=== PATIENT | male | born 1955 | race Caucasian/White ===

== ENCOUNTER 2019-08-16 09:39 | Outpatient (REF) | payer MEDICARE, SELFPAY ==
[2019-08-16 19:44] LABS: Calculated LDL 132 mg/dL; Cholesterol 195 mg/dL (50-200); Glucose 95 mg/dL (70-100); HDL Cholesterol 51 mg/dL (40-60); TSH (W/Ref FT4) 2.87 uIU/mL (0.36-3.74); Triglyceride 64 mg/dL (30-150)
== END 2019-08-16 09:59 ==
LOC: NCHCN 09:39
PROVIDERS: PCP Physician Assistant; Visit Provider Nurse Practitioner Family
DX: E78.00 Pure hypercholesterolemia, unspecified (principal); R01.1 Cardiac murmur, unspecified
CPT/HCPCS: 80061; 82947; 84443

== ENCOUNTER 2020-02-26 09:09 | Outpatient (REF) | payer MEDICARE, SELFPAY ==
[2020-02-26 19:34] LABS: ALT 38 U/L (16-63); AST 25 U/L (15-37); Alkaline Phosphatase 82 U/L (46-116); Anion Gap 8.2 mmol/L (3-11); BUN 16 mg/dL (7-18); Bilirubin, Total 0.6 mg/dL (0.2-1.0); CO2 29.8 mmol/L (21.0-32.0); CREATININE 0.98 mg/dL (0.70-1.30); Calcium 9.3 mg/dL (8.5-10.1); Calculated LDL 76 mg/dL (<100); Chloride 103 mmol/L (98-107); Cholesterol 141 mg/dL (<200); Glucose 101 mg/dL (74-106); HDL Cholesterol 42 mg/dL (40-60); Potassium 4.1 mmol/L (3.5-5.1); Sodium 141 mmol/L (136-145); Total Protein 6.9 g/dL (6.4-8.2); Triglyceride 119 mg/dL (<150)
== END 2020-02-26 09:29 ==
LOC: NCHCN 09:09
PROVIDERS: PCP Physician Assistant; Visit Provider Nurse Practitioner Family
DX: I10 Essential (primary) hypertension (principal); E78.5 Hyperlipidemia, unspecified
CPT/HCPCS: 80053; 80061

== ENCOUNTER 2020-03-05 19:50 | Outpatient (REF) | payer MEDICARE, SELFPAY ==
[2020-03-05 20:46] LABS: Calculated LDL 69 mg/dL (<100); Cholesterol 137 mg/dL (<200); HDL Cholesterol 53 mg/dL (40-60); Triglyceride 76 mg/dL (<150)
== END 2020-03-05 20:10 ==
LOC: NCHCN 19:50
PROVIDERS: PCP Physician Assistant; Visit Provider Nurse Practitioner Family
DX: E78.5 Hyperlipidemia, unspecified (principal)
CPT/HCPCS: 80061

== ENCOUNTER 2021-01-27 18:51 | Outpatient (REF) | payer MEDICARE, SELFPAY ==
[2021-01-27 15:38] LABS: Anion Gap 6.9 mmol/L (3-11); BUN 17 mg/dL (7-18); CO2 30.1 mmol/L (21.0-32.0); Calcium 9.4 mg/dL (8.5-10.1); Chloride 103 mmol/L (98-107); Glucose 95 mg/dL (74-106); Potassium 4.5 mmol/L (3.5-5.1); Sodium 140 mmol/L (136-145)
== END 2021-01-27 18:52 | disposition home or self-care (01) ==
LOC: NCHCN 18:51
PROVIDERS: PCP Physician Assistant; Visit Provider Nurse Practitioner Family
DX: I10 Essential (primary) hypertension (principal)
CPT/HCPCS: 80048

== ENCOUNTER 2021-07-30 20:45 | Outpatient (REF) | payer MEDICARE, SELFPAY ==
[2021-07-30 19:49] LABS: ESR 4 mm/hr (0-20)
[2021-07-30 20:07] LABS: ALT 35 U/L (16-63); Anion Gap 6.5 mmol/L (3-11); BUN 16 mg/dL (7-18); CO2 30.5 mmol/L (21.0-32.0); CREATININE 1.1 mg/dL (0.70-1.30); Calcium 9.1 mg/dL (8.5-10.1); Chloride 104 mmol/L (98-107); Glucose 90 mg/dL (74-106); LDL CHOLESTEROL 75 mg/dL (<100); Potassium 4.4 mmol/L (3.5-5.1); Sodium 141 mmol/L (136-145)
[2021-07-30 20:18] LABS: C-Reactive Protein < 0.05 mg/dL (0.0-0.3)
[2021-08-03 12:27] LABS: ANA Interpretation Negative (Negative)
== END 2021-07-30 20:46 | disposition home or self-care (01) ==
LOC: NCHCN 20:45
PROVIDERS: PCP Physician Assistant; Visit Provider Internal Medicine
DX: I10 Essential (primary) hypertension (principal); E78.5 Hyperlipidemia, unspecified; R09.1 Pleurisy; I31.9 Disease of pericardium, unspecified
CPT/HCPCS: 80048; 83721; 85652; 84460; 86038; 86140

== ENCOUNTER 2022-02-11 21:27 | Outpatient (REF) | payer MEDICARE, SELFPAY ==
--- OUTSIDE RECORDS SUMMARY | 2022-02-11 21:30 | XMS_ITS ---
:1955 Author Care Team Providers Name Role Phone JAGDISH GARCIA MD Filler Blender [phone] ERIKA RESTREPO MD General Surgeon [phone] JALEN FUNK MD Primary Care Provider [phone] Allergies Code Code System Name Reaction Severity Status Onset 2670 RxNorm Codeine Itching Mild Active ? 264006 RxNorm Peanut ? ? Active ? Notes: No seafood allergy. No co ntrast allergy. seasonal allergies Medications Name Status Start Date Stop Date ? ? Aleve 220 mg capsule Active 07/07/2020 Not availab le Take 1 capsule as needed by oral route. aspirin 81 mg tablet,delayed release Active 07/07/2020 Not available Take 1 tablet every day by oral route in the evening. atorvastatin 40 mg tablet Active 07/07/2020 Not av ailable colchicine 0.6 mg tablet Active ? Not parisa ilable Take 1 tablet twice a day by oral route. hydromorphone 2 mg tablet Completed ? 2019 lisinopril 20 mg tablet Completed ? 01/30/20 20 loratadine 10 mg capsule Completed ? 020 Take 1 capsule every day by oral route. loratadine 10 mg tablet Active 07/07/2020 Not avai lable Take 1 tablet as needed by oral route. losartan 25 mg tablet Active ? Not availa ble Take 1 tablet every day by oral route. metoprolol succinate ER 25 mg Active ? No t available tablet,extended release 24 hr metoprolol tartrate 50 mg Completed ? 2019 tablet oxycodone 5 mg tablet Completed ? 12/05/2019 valacyclovir 1 gram tablet Active 07/07/2020 Not a vailable prn Problems Name Status Onset Date Source ? Aortic Valve Stenosis Active 11/27/2019 ? Heart Murmur Active 12/05/2019 ? Hyperlipidemia Active 06/30/2020 ? Hypertensive Disorder Active 06/30/2020 ? 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 Chest Pain Due to Pericarditis Active 06/30/2020 ? History of Adenomatous Polyp of Colon Active 06/30/2020 ? History of Fracture Active 06/30/2020 ? Replacement of Aortic Valve Active 06/30/2020 ? Diverticula of Intestine Active ? History Tear of Medial Meniscus of Knee Active ? History Injury of Left Lower Leg Active ? History Knee Pain Active ? History Procedures Date Name Performed by ? 07/07/2020 Colonoscopy Information not avai lable Notes: diverticulosis, no polyps. 10/31/2019 Aortic Valve Surgery Information not parisa ilable Notes: 09/14/2019 Cardiac Catheterization Information not available 10/10/2004 Colonoscopy Information not avai lable ? Appendectomy Information not avai lable ? Knee Surgery Information not avai lable Notes: Right ACL repair ? Tonsillectomy Information not avai lable 01/22/2020 US, [facility]chocardiogram [facility] [address] [place] [id number] (Work Place) 10/14/2020 US, Echocardiogram, Transthoracic, [facility] (Internal) Complete [address], [place] [id number] (Work Place) 11/11/2020 US, Echocardiogram, Transthoracic, [facility] (Internal) Complete [address] [place] [id number] (Work Place) 11/11/2020 CT, Angiogram, Chest, W/wo Contrast [facility] (Mri And Ct Scheduling) [address] [place] [address] (Work Place) 08/19/2021 XR, Knee, 4 or More View [facility] (Internal) [address], [place] [id number] (Work Place) Results Lab Results Date Name Specimen Result Interpretation Description Value Range Status Address ? 12/29/2021 CBC W/ Auto Diff BLD ? Wbc 6.1 5.0-10.0 F inal [place] 10*3/uL 10*3/uL [facility] L ab (Internal) : [address] t ? ? BLD Low Rbc 4.40 4.60-6.00 Final [place] 10*6/uL 10*6/uL [facility] L ab (Internal) : [address] , [place] ? ? BLD Low Hgb 13.9 14.0-18.0 Final [place] g/dL g/dL [facility] L ab (Internal) : [address] [place] ? ? BLD Low Hct 40.4 % 41.0-51.0 Final [facility] L ab (Internal) : [address] [place] ? ? BLD ? Mcv 91.8 fL 80.0-96.[address] [facility] L ab (Internal) : [address] [place] ? ? BLD ? Mch 31.6 pg 26.0-32.0 Final [place] pg [facility] L [facility] (Internal) : [address] [place] ? ? BLD ? Mchc 34.4 31.0-35.0 Final [place] g/dL g/dL [facility] (Internal) : [address] [place] ? ? BLD ? Rdw 12.6 % 11.5-14.5 Final [facility] L [facility] (Internal) : [address] [place] ? ? BLD ? Plt 250 130-450 Final [place] 10*3/uL 10*3/uL [facility] L [facility] (Internal) : [address] [place] ? ? BLD ? Anc 3.35 ? Final [place] 10*3/uL [facility] (Internal) : [address] [place] ? ? BLD ? Nlr 1.66 0.00-3.20 Final [facility] (Internal) : [address] [place] ? ? BLD ? Neutro 54.5 % 40.0-75.0 Final [facility] (Internal) : [address] [place] ? ? BLD ? Lymph 32.9 % 20.0-50.0 Final [facility] (Internal) : [address] [place] ? ? BLD ? Hamlin 7.7 % 2.0-10.0 Final [facility] L [facility] (Internal) : [address] [place] ? ? BLD ? Eos 3.9 % 1.0-6.0 % Final [facility] L ab (Internal) : [address] [place] ? ? BLD ? Baso 0.7 % 0.0-1.0 % Final [facility] L ab (Internal) : [address] t ? ? BLD ? Ig 0.3 % 0.0-0.9 % Final [facility] (Internal) : [address] 12/29/2021 Hepatic Function S ? Tbil 0.50 0.20-1.00 Final [place] Panel, Serum mg/dL mg/dL [facility] L ab (Internal) : [address] t ? ? S ? Dbil 0.15 0.00-0.20 Final [place] mg/dL mg/dL [facility] L ab (Internal) : [address] t ? ? S ? Alp 80 U/L 46-116 Final [place] U/L [facility] ab (Internal) : [address] t ? ? S ? Alt (Sgpt) 29 U/L 16-63 U/L Final No rth [facility] L ab (Internal) : [address] t ? ? S ? Ast (Sgot) 20 U/L 15-37 [facility] [address] t ? ? S ? Ggt 20 U/L 15-85 U/L Final [facility] ab (Internal) : [address] t ? ? S ? Tp 7.4 g/dL 6.4-8.2 Final [place] g/dL [facility] L ab (Internal) : [address] t ? ? S ? Alb 4.1 g/dL 3.4-5.0 Final [place] g/dL [facility] L [facility] (Internal) : [address] 12/29/2021 Renal Function S ? g/r 100 74-106 Final [place] Panel, Serum mg/dL mg/dL [facility] L ab (Internal) : [address] t ? ? S ? Bun 14 mg/dL 7-18 Final [place] mg/dL [facility] L ab (Internal) : [address] t ? ? S ? Crea 0.9 0.7-1.3 Final [place] mg/dL mg/dL [facility] (Internal) : [address] t ? ? S ? Ca 8.8 8.5-10.1 Final [place] mg/dL mg/dL [facility] (Internal) : [address] t ? ? S ? Phos 3.4 2.6-4.7 Final [place] mg/dL mg/dL [facility] (Internal) : [address] t ? ? S ? Na 137 136-145 Final [place] mmol/L mmol/L [facility] (Internal) : [address] t ? ? S ? K 4.0 3.5-5.1 Final [place] mmol/L mmol/L [facility] (Internal) : [address] t ? ? S ? Cl 102 98-107 Final [place] mmol/l mmol/l [facility] (Internal) : [address] t ? ? S ? Tco2 28.2 21.0-32.0 Final [place] mmol/L mmol/L [facility] (Internal) : [address] t ? ? S ? Alb 4.1 g/dL 3.4-5.0 Final [place] g/dL [facility] (Internal) : [address] t ? ? S Low GFR (Calc) 87 >89 Final [facility] L ab (Internal) : [address] 12/29/2021 Lipid Panel, S ? Chol 146 0-200 Final [place] Serum mg/dL mg/dL [facility] (Internal) : [address] t ? ? S ? Trig 55 mg/dL 0-150 Final [place] mg/dL [facility] (Internal) : [address] t ? ? S High Hdl 63 mg/dL 40-60 Final [place] mg/dL [facility] (Internal) : [address] t ? ? S ? Ldl 72 mg/dL 0-130 Final [place] mg/dL [facility] (Internal) : [address] 11/16/2021 CBC W/ Auto Diff BLD ? Wbc 6.9 5.0-10.0 F inal [place] 10*3/uL 10*3/uL [facility] (Internal) : [address] [place] ? ? BLD Low Rbc 4.43 4.60-6.00 Final [place] 10*6/uL 10*6/uL [facility] L ab (Internal) : [address] [place] ? ? BLD Low Hgb 13.8 14.0-18.0 Final [place] g/dL g/dL [facility] L [facility] (Internal) : [address] [place] ? ? BLD Low Hct 40.7 % 41.0-51.0 Final [facility] L ab (Internal) : [address] [place] ? ? BLD ? Mcv 91.9 fL 80.0-96.[address] [facility] L ab (Internal) : [address] [place] ? ? BLD ? Mch 31.2 pg 26.0-32.0 Final [facility] L ab (Internal) : [address] [place] ? ? BLD ? Mchc 33.9 31.0-35.0 Final [place] g/dL g/dL [facility] L [facility] (Internal) : [address] [place] ? ? BLD ? Rdw 11.9 % 11.5-14.5 Final [facility] L ab (Internal) : [address] [place] ? ? BLD ? Plt 249 130-450 Final [place] 10*3/uL 10*3/uL [facility] L ab (Internal) : [address] ? ? BLD ? Anc 4.05 ? Final [place] 10*3/uL [facility] L ab (Internal) : [address] ? ? BLD ? Nlr 2.15 0.00-3.20 Final [facility] L ab (Internal) : [address] [place] ? ? BLD ? Neutro 59.1 % 40.0-75.0 Final [facility] L ab (Internal) : [address] [place] ? ? BLD ? Lymph 27.4 % 20.0-50.0 Final [facility] L ab (Internal) : [address] [place] ? ? BLD ? Hamlin 8.7 % 2.0-10.0 Final [place] [facility] (Internal) : [address] t ? ? BLD ? Eos 3.8 % 1.0-6.0 % Final [facility] L ab (Internal) : [address] t ? ? BLD ? Baso 0.6 % 0.0-1.0 % Final [facility] L ab (Internal) : [address] t ? ? BLD ? Ig 0.4 % 0.0-0.9 % Final [facility] L ab (Internal) : [address] t 11/16/2021 CMP, Serum or S High g/r 107 74-106 Final [place] Plasma mg/dL mg/dL [facility] (Internal) : [address] t ? ? S ? Bun 16 mg/dL 7-18 Final [place] mg/dL [facility] (Internal) : [address] t ? ? S ? Crea 0.9 0.7-1.3 Final [place] mg/dL mg/dL [facility] (Internal) : [address] t ? ? S ? Ca 9.7 8.5-10.1 Final [place] mg/dL mg/dL [facility] (Internal) : [address] t ? ? S ? Na 136 136-145 Final [place] mmol/L mmol/L [facility] (Internal) : [address] t ? ? S ? K 4.5 3.5-5.1 Final [place] mmol/L mmol/L [facility] (Internal) : [address] t ? ? S ? Cl 101 98-107 Final [place] mmol/l mmol/l [facility] (Internal) : [address] t ? ? S ? Tco2 27.5 21.0-32.0 Final [place] mmol/L mmol/L [facility] (Internal) : [address] t ? ? S ? Tp 7.4 g/dL 6.4-8.2 Final [place] g/dL [facility] (Internal) : [address] t ? ? S ? Alb 4.0 g/dL 3.4-5.0 Final [place] g/dL [facility] (Internal) : [address] t ? ? S ? Tbil 0.60 0.20-1.00 Final [place] mg/dL mg/dL [facility] L ab (Internal) : [address] t ? ? S ? Alp 80 U/L 46-116 Final [place] U/L [facility] L [facility] (Internal) : [address] t ? ? S ? Alt (Sgpt) 25 U/L 16-63 U/L Final No rth [facility] L ab (Internal) : [address] t ? ? S ? Ast (Sgot) 23 U/L 15-37 U/L Final No rth [facility] L ab (Internal) : [address] 11/16/2021 CRP, High S ? Rcrp 0.40 0.00-3.00 Final [place] Sensitivity, mg/L mg/L Coun try Serum or Plasma H ospital Lab (Internal) : [address] 11/16/2021 ESR (Erythrocyte BLD ? Esr 13 mm/h 0-20 mm/h Final [place] Sedimentation Cou ntry Rate), Blood Hosp ital Lab (Internal) : [address] 01/09/2021 EKG Done by Lab ? No ? ? ? [place] observation Count ry recorded. Hospita l Lab (Internal) : [address] 12/11/2020 Lipid Panel, S ? Chol 155 50-200 Final [place] Serum mg/dL mg/dL [facility] L ab (Internal) : [address] t ? ? S ? Trig 72 mg/dL 10-150 Final [place] mg/dL [facility] L ab (Internal) : [address] t ? ? S High Hdl 69 mg/dL 40-60 Final [place] mg/dL [facility] (Internal) : [address] t ? ? S ? Ldl 72 mg/dL 0-130 Final [place] mg/dL [facility] L [facility] (Internal) : [address] 12/11/2020 Hepatic Function S ? Tbil 0.7 0.2-1.3 Fi nal [place] Panel, Serum mg/dL mg/dL [facility] L ab (Internal) : [address] t ? ? S ? Dbil 0.2 0.0-0.3 Final [place] mg/dL mg/dL [facility] (Internal) : [address] t ? ? S ? Alp 77 U/L 38-126 Final [place] U/L [facility] L [facility] (Internal) : [address] t ? ? S ? Alt (Sgpt) 24 U/L 21-72 U/L Final No rth [facility] L ab (Internal) : [address] t ? ? S ? Ast (Sgot) 35 U/L 17-59 U/L Final No rth [facility] L ab (Internal) : [address] t ? ? S ? Ggt 21 U/L 15-73 U/L Final [facility] L ab (Internal) : [address] t ? ? S ? Tp 7.5 g/dL 6.3-8.2 Final [place] g/dL [facility] L [facility] (Internal) : [address] t ? ? S ? Alb 4.5 g/dL 3.5-5.0 Final [place] g/dL [facility] L ab (Internal) : [address] t 09/01/2019 CBC W/ Auto Diff BLD - Wbc 6.7 5.0-10.0 F inal [place] 10*3/uL 10*3/uL [facility] L ab (Internal) : [address] t ? ? BLD Low Rbc 4.48 4.60-6.00 Final [place] 10*6/uL 10*6/uL [facility] (Internal) : [address] t ? ? BLD - Hgb 14.4 14.0-18.0 Final [place] g/dL g/dL [facility] (Internal) : [address] t ? ? BLD - Hct 41.4 % 41.0-51.0 Final [place] % [facility] (Internal) : [address] t ? ? BLD - Mcv 92.4 fL 80.0-96.[address] [facility] L ab (Internal) : [address] t ? ? BLD High Mch 32.1 pg 26.0-32.0 Final [place] pg [facility] (Internal) : [address] ? ? BLD - Mchc 34.8 31.0-35.0 Final [place] g/dL g/dL [facility] (Internal) : [address] t ? ? BLD - Rdw 12.0 % 11.5-14.5 Final [place] % [facility] ab (Internal) : [address] ? ? BLD - Plt 273 130-450 Final [place] 10*3/uL 10*3/uL [facility] L ab (Internal) : [address] ? ? BLD - Anc 2.90 ? Final [place] 10*3/uL [facility] (Internal) : [address] t ? ? BLD - Neutro 43.4 % 40.0-75.0 Final [facility] L ab (Internal) : [address] t ? ? BLD - Lymph 42.0 % 20.0-50.0 Final [facility] L ab (Internal) : [address] t ? ? BLD - Hamlin 9.6 % 2.0-10.0 Final [facility] L ab (Internal) : [address] t ? ? BLD - Eos 4.3 % 1.0-6.0 % Final [facility] L ab (Internal) : [address] t ? ? BLD - Baso 0.6 % 0.0-1.0 % Final [facility] L ab (Internal) : [address] t ? ? BLD - Ig 0.1 % 0.0-0.9 % Final [facility] L ab (Internal) : [address] 09/01/2019 BMP, Serum or S - g/r 103 74-106 Final [place] Plasma mg/dL mg/dL [facility] (Internal) : [address] t ? ? S - Bun 15 mg/dL 9-20 Final [place] mg/dL [facility] (Internal) : [address] t ? ? S - Crea 0.90 0.66-1.25 Final [place] mg/dL mg/dL [facility] (Internal) : [address] [facility] ? ? S - Ca 9.6 8.4-10.2 Final [place] mg/dL mg/dL [facility] (Internal) : [address] [facility] ? ? S - Na 137 137-145 Final [place] mmol/L mmol/L [facility] (Internal) : [address] [facility] t ? ? S - K 4.1 3.5-5.1 Final [place] mmol/L mmol/L [facility] (Internal) : [address] [facility] ? ? S - Cl 101 98-107 Final [place] mmol/L mmol/L [facility] (Internal) : [address] [facility] ? ? S - Tco2 26.0 22.0-30.0 Final [place] mmol/L mmol/L [facility] (Internal) : [address] [facility] t 09/01/2019 Magnesium, QN, S - mg 1.9 1.6-2.3 Melania l [place] Serum or Plasma mg/dL mg/dL [facility] L ab (Internal) : [address] [facility] 09/01/2019 Partial BLD - PTT (Ip) 26 s 22-35 s Final N orth Thromboplastin Co [facility] L ab (Internal) : [address] [facility] t 09/01/2019 Prothrombin Time BLD - Pt 10.2 S 9.1-11.7 F inal [facility] L ab (Internal) : [address] [facility] ? ? BLD - Inr 1.0 ? Final [facility] L ab (Internal) : [address] [facility] t 09/01/2019 Troponin I, S - Trop <0.06 0.00-0.06 Final [place] Serum or Plasma NG/mL NG/mL [facility] L ab (Internal) : [address] [facility] 09/01/2019 Troponin I, S - Trop <0.06 0.00-0.06 Final [place] Serum or Plasma NG/mL NG/mL [facility] ab (Internal) : [address] [facility] Past Encounters 12/29/2021 Arteriosclerotic Vascular Disease Jagdish Garcia MD: [address], [place] [address], Ph. 08/19/2021 Pain of Right Knee Region Tashi Godoy MD: [address] [facility], [address], [place] [address], Ph. 05/01/2021 Jagdish Garcia MD: [address], [place] [address], Ph. 11/11/2020 Jagdish Garcia MD: [address], [place] [address], Ph. Social History Tobacco Smoking Status Never Smoker Vaccine List None recorded. Plan of Care Reminders Provider Appointments None ? ? recorded. Lab None ? ? recorded. Referral None ? ? recorded. Procedures None ? ? recorded. Surgeries None ? ? recorded. Imaging None ? ? recorded. Vitals 12/29/2021 01:00PM Follow Up 30 Height Weight BMI Blood Pressure 167.64 cm 74 kg 26.3 kg/m2 129/81 mm[Hg] 08/19/2021 11:30AM Office 30 Height Weight BMI 167.64 cm 75.43 kg 26.8 kg/m2 05/01/2021 10:30AM Follow Up 30 Height Weight BMI Blood Pressure 167.64 cm 74 kg 26.3 kg/m2 124/70 mm[Hg] 11/11/2020 09:45AM NuclearMedFollow-up Height Weight BMI Blood Pressure 167.64 cm 74.7 kg 26.6 kg/m2 133/81 mm[Hg] 04/22/2020 01:45PM Follow Up 15 Height Weight BMI Blood Pressure 167.64 cm 74.3 kg 26.4 kg/m2 131/73 mm[Hg] 12/05/2019 01:00PM Consult 60 Height Weight BMI Blood Pressure 167.64 cm 73.9 kg 26.3 kg/m2 106/66 mm[Hg] 08/29/2019 11:30AM Follow Up 30 Height Weight BMI Blood Pressure 167.64 cm 76.4 kg 27.2 kg/m2 120/80 mm[Hg] 04/05/2016 Height Weight 167.64 cm 72.57 kg 05/08/2014 Height Weight Blood Pressure 167.64 cm 72.57 kg 122/82 mm[Hg] 11/27/2013 Height Weight Blood Pressure 167.64 cm 72.57 kg 134/76 mm[Hg]
--- OUTSIDE RECORDS SUMMARY | 2022-02-11 21:30 | XMS_ITS | Encounter Summary ---
:1955 Author Care Team Providers Name Role Phone Momo Falcon MD Primary Care Provider [phone] Jagdish Gonzalez MD Electrical Apprentice [phone] Krunal Hidalgo MD General Surgeon [phone] Reason for Visit - Aortic Stenosis; hyperlipidemia; CA D - Coronary Artery Disease; HTN-Hypertension Assessment and Plan Assessment Note Date: December 29, 2021 Referring: Momo Falcon Re: Perez Yap 66-year-old man. Problems: 1. Aortic stenosis. Bicuspid valve. October 31, 2019. 23 mm Inspiris biopros thetic valve. Symptoms prior to valve replacement incl uded progressive shortness of breath and fatigue that has been noted in a crescendo fashion for about 2 years. 2019 echo: Aortic stenosis: mean gradien t 43 mmHg. 2. Question pericarditis. In the first week of January 2020 patient began to note chest discomfort that appeared to be positionally mediated. It was worse when he was sitting in a chair or laying down in certain positions, relieved when he would get up or sit forward. Was doing well otherwise. Was pursuing a ll his usual activities, busy sugaring. Doing some physical work. Walking. Progressing well from surgery. No fever or chills, no URI symptoms. We spoke on the phone January 21, 2020 in regard to this discomfort. We agreed to begin high-dose aspirin: 800 mg 3 times daily x1 week, 800 mg twice daily x1 week, 800 mg daily x1 week, and start colchicine 0.6 mg twice daily. Today, January 30, 2020, he feels that his discomfort has improved somewhat. He has gone 1 week on high-dose aspirin. Is beginning 800 mg twice daily this week. He has not yet started colchicine. HPI: December 29, 2021. ER evaluation u 2021. Left arm tingling. He had an episode of vertigo (not uncommon). Following episode on morning of evaluation developed a metallic taste in his mouth, n umbness and tingling around his lips and left hand. Lightheaded. [address] scan demonstrating Indeterminate well-circumscribed CSF attenuating focus posterior fossa right of midlin e. May represent chronic infarct versus arachnoid cyst. Patient is active in his usual capacity at this time of year. He is actively sugaring. He is climbing up and down the hills around his house securing his lines looking after his taps etc. He is very physically active. He was busy during the winter with skiin g and snowboarding. Busy around the house. Is starting to get back into cross-country skiing. He is doing some yoga. Walking half mile twice daily. Activities are well-tolerated. He is describing a bit more fatigue than usual. He is pretty tired after a long day of skiing. Denies chest discomfort. Denies shortnes s of breath. Denies PND orthopnea edema. Weight is stable. No palpitations presyncope or syncope. No bleeding problems. Data: Cardiac risk factors: Negative tobacco. Negative diabetes. Negative cholesterol. Positive hypertension. Negative family history Social history: Activity profile as abov e. No tobacco. No alcohol. Past medical history: Pelvic fracture. B ack pain. Review of systems: A 10-point review of systems was obtained. Pertinent positives as described in HPI, all others negative. Allergies: Peanuts. Codeine. Contrast allergies: Echo: November 02, 2021. LVEF 65-70%. No segmental wall motion abnormalities. Normal size. Mild concentric LVH. Diastolic indices indeterminate. Sinus rhythm. Left atrium mildly dilated, 40.7 (34). Right ventricle normal size and function. Rig ht atrium mildly dilated. Bioprosthetic aortic valve. Peak velocity 2.6 m/s. Mean gradient 12 mmHg. DOI 0.53. Acceleration time 86 ms. No AI. Normal function. Tri vial?mild MR. Trivial TR. Pulmonary pres sure 40-50 mmHg. Pericardium normal. Aortic root normal 3.3. Ascending moderately dilated 4.3. Arch mildly dilated 3.5. No PDA. IVC normal. No ASD VSD PFO. E prime 8, 10 (7, 10). E/E prime averag e 9 (14). TR max 3.2 (2.8). January 25, 2020. LVEF 65%. Normal size. M ild LVH. Right ventricle normal. Left atrium mildly dilated. Right atrium mildly dilated. Bioprosthetic aortic valve: Normal function. Peak velocity 2.4 m/s. Mean gradient 11 mmHg. DOI 0.53, acceleratio n time less than 100 ms. Small anterior paravalvular leak. No AI. 1?2+ MR. Trivial TR. Pulmonary pressure 30-40 mmHg total. Aortic root mildly dilated 3.7. Ascending moderately dilated 4.3. Arch normal 3.2. No coarctation. No PDA. IVC mildly dilated common respirophasic change right atrial pressure estimated 5-10 mmHg. Interatrial septum is lipomatous. Si nus rhythm. E prime 7, 11 (7, 10). E/E p rimed 12.3, 8.4 (15, 12). December 03, 2019. [facility]. LVEF 63%. Normal size. Borderline LVH. Normal Doppler evaluation. Right ventricle not described. Pulmonary pressure not assessable. Left atrium mildly dilated, right atrium mildly dilated. Aortic valve: Bioprosth etic aortic valve. 23 mm valve. Peak velocity 3.09 m/s. Mean gradient 18 mmHg. DOI 0.4. Normal function. Trace MR. Trace TR. Trace PI. Aortic root mildly dilated 3.8. Ascending aorta moderately dilated 4.5 cm. Pulmonary artery normal. October 31, 2019. Operative FANTA. LVEF 70 %. Right ventricle probably normal. Left atrium no spontaneous contrast, no thrombus. Right atrium: Prominent eustachian valve. Prominent Chiari network. Aortic v alve: Mean gradient 7.2 mmHg. Well-seate d. No prosthetic valve regurgitation. 1+ MR. 1+ TR. Mild dilatation aortic root, moderate dilatation ascending aorta. Grade 3 atheroma a sending aorta, arch, descending aorta. Cardiac MRI: Stress: LHC: September 17, 2019. [facility]. Left m ain: Mild disease. LAD: 60% ostial. LCx: 45% mid. OM1: 55% ostial. RCA: 50% proximal. Mean right atrial pressure 5 mmHg. RV pr essure 35/7 mmHg PA pressure 30/12 mmHg. Mean wedge pressure 11 mmHg. Cardiac output Sussy 4.85, cardiac index Sussy 2.7. Holter: Event monitor: EKG: December 29, 2021. Sinus rhythm 60 bpm . Normal axis. No acute change. QT/QTc 420 ms November 16, 2021. Sinus rhythm 66 bpm. N ormal axis. Q wave lead III. No acute change. QT/QTc 431/452 ms. December 03, 2019. Sinus rhythm 65 bpm. T wave inversions leads III, F, V4?V6. QT/QTc 410/426 ms. August 14, 2019. Sinus rhythm 88 bpm. N ormal axis. No acute change. QT/QTc 376/425 ms. Radiology: September 01, 2019. Chest x-ra y. No acute process. Pulmonary function test: December 14, 2021. FVC 112% predicted. FEV1 110% predicted. FEV1/FVC 97% predicted. DLCO not calculated. Radiology: December 02, 2020. CT angiogr am chest. [facility]. Helical CT angiogram. Mild four-chamber cardiac enlargement. Somewhat asymmetrically affecting the right atrium. Moderate multifocal atherosc lerotic calcification of the coronary ar teries. Aorta: Fusiform enlargement of the ascending aorta. No sinotubular junction effacement. Postsurgical changes along the ventral aspect of the aorta consist ent with prior cardiopulmonary bypass. S inuses: 2.9 x 3.6 cm. Sinotubular junction: 3.2 x 3.3 cm. Mid ascending aorta: 4.2 x 4.3 cm. Proximal aortic arch 3.8 x 2.9 cm. Mid aortic arch 2.8 x 3.0 cm. Prox imal descending thoracic: 2.3 x 2.5 cm. Mid descendin.3 x 2.4 cm. A diaphragm: 2.2 x 2.3 cm. Abdominal aorta at celiac axis origin: 2.1 x 2.4 cm. Normal three-vessel arch. Calcified atherosclerotic plaque at the origin of the left common carotid artery without significant stenosis. Celiac/SMA: Widely patent. Pulmonary arteries: Normal in course and caliber. Dependent atelectasis bilaterally. No pl eural effusion. Thyroid gland lobulated, most likely multinodular goiter. November 26, 2021. Carotid ultrasound. B ilateral plaque, mild to moderate. No significant stenosis. November 18, 2021. MR brain with without contrast. No acute intracerebral abnormality. No infarct or intracerebral bleed. Triangular-shaped area located inferior right cerebellar hemisphere. Encephalomal acia typical for chronic infarct. Differ ential: Arachnoid cyst, epidermoid cyst or cystic neoplasm unlikely. Minimal tiny patchy foci of leukomalacia seen in both cerebral hemispheres consistent with ch ronic underlying small vessel ischemic d isease most likely. November 16, 2021. CT head brain with con trast. Indeterminate well-circumscribed CSF attenuating focus posterior fossa right of midline. May represent chronic infarct versus arachnoid cyst. Epidermoid cyst and cystic neoplasm are less likely. Labs: November 16, 2021. ESR normal 13. C RP normal 0.4. BUN/creatinine 16/0.9. Lites normal. AST/ALT normal. H/H 13.8/40.7. WBC, platelet normal. September 01, 2019. Troponin less than 0. 06. Magnesium normal 1.9. BUN/creatinine 15/0.9. Lites normal. CBC normal. Medications: Aspirin 81 mg daily, atorva statin 40 mg daily, losartan 25 mg daily, metoprolol succinate 12.5 mg daily Loratadine, Aleve Exam: Blood pressure 129/81 Heart rate: 66 Oxygen saturation: 98% Weight: 163 pounds, 162.9 pounds General: Patient alert oriented appropri ate conversant. HEENT: JVP 7 cm sitting. Heart: Regular rate and rhythm, S1-S2, n o murmur gallop or rub. Lungs: Clear to auscultation bilaterally . Abdomen: Soft. Nontender. Nondistended. Extremities: No lower extremity edema bi laterally. Assessment: 1. Aortic stenosis. Bicuspid aortic valve. Bioprosthetic aortic valve replacement J anuary 2019. Discrepancy between postoperative FANTA an d TTE with mean gradient: 7 mmHg versus 18 mmHg. TTE: Peak velocity 3.1 m/s. Mean gradien t 18 mmHg. DOI 0.4. Normal function. TTE January 2020 (done to evaluate presump tive pericarditis): Normal bioprosthetic valve function: Peak velocity 2.4 m/s. Mean gradient 11 mmHg. DOI 0.53, acceleration time less than 100 ms. Small anterior paravalvular leak. No AI. TTE November 02, 2021. Bioprosthetic aort ic valve. Peak velocity 2.6 m/s. Mean gradient 12 mmHg. DOI 0.53. Acceleration time 86 ms. No AI. No paravalvular leak. Maintained on aspirin. Because of bicuspid valve related aortop athy we will repeat echo in 1 year. Today, December 29, 2021: Doing very well c linically from this perspective. 2. Coronary disease. Moderate multivessel disease on pre-AVR LHC. 60% proximal LAD. He also has fairly significant aortic at heroma noted on FANTA. He is typically a very aerobic individua l. I think we will be able to follow him well from this perspective as his functionality increases again following surgery. Maintained on aspirin, beta-james. Farheen ntained on statin. Concerning regarding possible TIA sympto ms November 2021, this on a background of potential old CVA. Think we should be aggressive with ather osclerosis risk modification. We will obtain blood work today: Lipid and liver panel, lites BUN/creatinine CBC. He is somewhat concerned the fatigue edna ht represent side effect of metoprolol. He has decreased his metoprolol dose without much effect on fatigue. I think he could stop metoprolol if he wanted. 3. Hypertension. Well-controlled on losartan, beta-blocke r. 4. Lipids. We will assess today, December 29, 2021. Wi ll aim for aggressive LDL control. We will contact him with results. 5. Aortopathy. Echo post aVR: Aortic root mildly dilate d 3.8. Ascending aorta moderately dilated 4.5 cm. Echo January 2020 (pericarditis evaluation ): Aortic root mildly dilated 3.7. Ascending moderately dilated 4.3. Arch normal 3.2. No coarctation. December 02, 2020. [facility]. Helical CT angiogram. Sinuses: 2.9 x 3.6 cm. Sinotubular junction: 3.2 x 3.3 cm. Mid ascending aorta: 4.2 x 4.3 cm. Proximal aortic arch 3.8 x 2.9 cm. Mid aortic arch 2.8 x 3.0 cm. Proximal descending thoracic: 2 .3 x 2.5 cm. Mid descendin.3 x 2.4 cm. At diaphragm: 2.2 x 2.3 cm. Abdominal aorta at celiac axis origin: 2.1 x 2.4 cm. Normal three-vessel arch. November 02, 2021. Aortic root normal 3.3 . Ascending moderately dilated 4.3. Arch mildly dilated 3.5. I think there is good correlation with a scending aorta diameters between helical CT and echo. Echo October 2022. 6. Question pericarditis. He has a good story for positionally med iated chest discomfort. May have had some benefit to high-dose a spirin. Has not yet started colchicine. I recommend that he begin colchicine today, January 30, 2020. Echocardiogram January 2020: No pericardia l abnormality noted. Today, December 29, 2021: Appears to be doi ng well from this perspective. 7. Question TIA/CVA. Symptoms November 2021 concerning for TI A. No recurrence. Imaging November 2021 suggesting the pos sibility of an old infarct. Apparently he had an identical defect on a 2019 CT scan done at [facility] (post SAVR, in the context of headache). Perhaps he had a basil procedure CVA during valve replacement. He has an appoint with neurology later i n the spring 2021. Maintained on aspirin, statin. Aggressive atherosclerotic risk factor n otification as above. Thank you for allowing me to participate in this patient's care. Sincerely, Jagdish Gonzalez MD, FACC Disposition: We will see him back 6 peggy hs Time: 30-minute office interview with amada rosado. 10-minute chart reviewed only completion 1. Arteriosclerotic vascular dis ease ? CBC w/ auto diff ? lipid panel, serum ? hepatic function panel, se rum ? renal function panel, seru m Discussion Note: None recorded.Patient educational handouts: No information available. Plan of Care Reminders Provider Appointments Follow up 06/30/2022 Tashi morales Noel 30 1:00PM MD Carlos ? Return to on or around Shelbi Martinez Office 07/08/2025 MD Gwen Lab CBC W/ Auto 12/29/2021 [facility] Diff Hospital Lab (Internal) ? Lipid 12/29/2021 [facility] ry Panel, Serum Hospital Lab (Internal) ? Hepatic 12/29/2021 [facility] ntry Function Panel, Serum Hospital L ab (Internal) ? Renal 12/29/2021 [facility] ry Function Panel, Serum Hospital L ab (Internal) Referral None ? ? recorded. Procedures None ? ? recorded. Surgeries None ? ? recorded. Imaging None ? ? recorded. Medications Name Start Date ? ? Aleve 220 mg capsule 07/07/2020 Take 1 capsule as needed by oral route. aspirin 81 mg tablet,delayed release 07/07/2020 Take 1 tablet every day by oral route in the evening. atorvastatin 40 mg tablet 07/07/2020 Take 1 tablet every day by oral route. colchicine 0.6 mg tablet ? Take 1 tablet twice a day by oral route. loratadine 10 mg tablet 07/07/2020 Take 1 tablet as needed by oral route. losartan 25 mg tablet ? Take 1 tablet every day by oral route. metoprolol succinate ER 25 mg tablet,extended release 24 hr ? Take 1 tablet every day by oral route in the evening. valacyclovir 1 gram tablet 07/07/2020 prn Medications Administered None recorded. Vitals Height Weight BMI Blood Pressure 5 ft 6 in 74 kg 26.3 kg/m2 129/81 mm[Hg] Results Lab Results Date Name Specimen Result Interpretation Description Value Range Status Address ? 12/29/2021 CBC W/ Auto BLD ? Wbc 6.1 5.0-10.0 Final [facility] Diff 10*3/uL 10*3/uL Hospital Lab (Internal) : [address] t ? ? BLD Low Rbc 4.40 4.60-6.00 Final [facility] ountry 10*6/uL 10*6/uL Hospital Lab (Internal) : [address] t ? ? BLD Low Hgb 13.9 g/dL 14.0-18.0 Final [facility] g/dL Hospital L ab (Internal) : [address] ? ? BLD Low Hct 40.4 % 41.0-51.0 Final [facility] Hospital L ab (Internal) : [address] ? ? BLD ? Mcv 91.8 fL 80.0-96.0 Final [facility] fL Hospital L ab (Internal) : [address] ? ? BLD ? Mch 31.6 pg 26.0-32.0 Final [facility] pg Hospital L ab (Internal) : [address] t ? ? BLD ? Mchc 34.4 g/dL 31.0-35.0 Final [facility] g/dL Hospital L ab (Internal) : [address] t ? ? BLD ? Rdw 12.6 % 11.5-14.5 Final [facility] L [facility] (Internal[facility] : [address] t ? ? BLD ? Plt 250 130-450 Final [facility] ntry 10*3/uL 10*3/uL Hospital Lab (Internal) : [address] ? ? BLD ? Anc 3.35 ? Final [facility] try 10*3/uL Hospital Lab (Internal) : [address] ? ? BLD ? Nlr 1.66 0.00-3.20 Final [facility] Hospital L ab (Internal) : [address] ? ? BLD ? Neutro 54.5 % 40.0-75.0 Final [facility] Hospital L ab (Internal) : [address] ? ? BLD ? Lymph 32.9 % 20.0-50.0 Final [facility] Hospital L ab (Internal) : [address] ? ? BLD ? Beckham 7.7 % 2.0-10.0 % Final [facility] L ab (Internal) : [address] ? ? BLD ? Eos 3.9 % 1.0-6.0 % Final [facility] L ab (Internal) : [address], [place] t ? ? BLD ? Baso 0.7 % 0.0-1.0 % Final [facility] L ab (Internal) : [address] ? ? BLD ? Ig 0.3 % 0.0-0.9 % Final [facility] Hospital L ab (Internal) : [address], [place] t 12/29/2021 Hepatic S ? Tbil 0.50 0.20-1.00 Final [facility] Function mg/dL mg/dL Hospital Lab Panel, (Internal) : Serum [address], [place] t ? ? S ? Dbil 0.15 0.00-0.20 Final [facility] mg/dL mg/dL Hospital L ab (Internal) : [address] ? ? S ? Alp 80 U/L 46-116 U/L Final [facility] Hospital L ab (Internal) : [address] t ? ? S ? Alt 29 U/L 16-63 U/L Final [facility] (Sgpt) Hospital L ab (Internal) : [address] t ? ? S ? Ast 20 U/L 15-37 U/L Final [facility] (Sgot) Hospital L ab (Internal) : [address] t ? ? S ? Ggt 20 U/L 15-85 U/L Final [facility] Hospital L ab (Internal) : [address] t ? ? S ? Tp 7.4 g/dL 6.4-8.2 Final [facility] ountry g/dL Hospital L ab (Internal) : [address] t ? ? S ? Alb 4.1 g/dL 3.4-5.0 Final [facility] ountry g/dL Hospital L ab (Internal) : [address] t 12/29/2021 Renal S ? g/r 100 mg/dL 74-106 Final [facility] Function mg/dL Hospital Lab Panel, (Internal) : Serum [address] t ? ? S ? Bun 14 mg/dL 7-18 mg/dL Final [facility] Hospital L ab (Internal) : [address] t ? ? S ? Crea 0.9 mg/dL 0.7-1.3 Final [facility] mg/dL Hospital L ab (Internal) : [address] t ? ? S ? Ca 8.8 mg/dL 8.5-10.1 Final [facility] mg/dL Hospital L ab (Internal) : [address] t ? ? S ? Phos 3.4 mg/dL 2.6-4.7 Final [facility] mg/dL Hospital L ab (Internal) : [address] t ? ? S ? Na 137 136-145 Final [facility] mmol/L mmol/L Hospital L ab (Internal) : [address] t ? ? S ? K 4.0 3.5-5.1 Final [facility] mmol/L mmol/L Hospital L ab (Internal) : [address] t ? ? S ? Cl 102 98-107 Final [facility] mmol/l mmol/l Hospital L ab (Internal) : [address] t ? ? S ? Tco2 28.2 21.0-32.0 Final [facility] ountry mmol/L mmol/L Hospital L ab (Internal) : [address], [place] ? ? S ? Alb 4.1 g/dL 3.4-5.0 Final [facility] g/dL Hospital L ab (Internal) : [address] ? ? S Low GFR 87 >89 Final [facility] (Calc) Hospital L ab (Internal) : [address] 12/29/2021 Lipid S ? Chol 146 mg/dL 0-200 Final [facility] Country Panel, mg/dL Hospital L ab Serum (Internal) : [address] ? ? S ? Trig 55 mg/dL 0-150 Final [facility] mg/dL Hospital L ab (Internal) : [address] ? ? S High Hdl 63 mg/dL 40-60 Final [facility] mg/dL Hospital L ab (Internal) : [address] ? ? S ? Ldl 72 mg/dL 0-130 Final [facility] mg/dL Hospital L ab (Internal) : [address] Allergies Code Code System Name Reaction Severity Onset 2670 RxNorm Codeine Itching Mild ? 959055 RxNorm Peanut ? ? ? Notes: No seafood allergy. No co ntrast allergy. seasonal allergies Problems Name Status Onset Date Source ? [...] repair ? Tonsillectomy Information not avai lable Vaccine List None recorded. Social History Tobacco Smoking Status Never Smoker Are you currently employed? Y What is your code status? 0 How much tobacco do you none chew? What is your level of Occasional Notes: 1 drink a day alcohol consumption? Are you passively exposed N to smoke? Are you blind or do you N Notes: wears corrective have difficulty seeing? lenses What was the date of your 03/25/2020 most recent tobacco screening? Do you have an advanced Y directive? Do you or have you ever Never used electronic used e-cigarettes or vape? cigarettes What is your exercise Moderate Notes: climb st airs, level? walks, ski, swim, bi cipriano Which of your hands is Right dominant? Live alone or with others? with others Notes: S/O Fiorella Do you or have you ever Never used smokeless tobacco used smokeless tobacco? Hard of hearing or deaf in Y Notes: wea rs hearing one or both ears? aides What is your level of Occasional Notes: 2 cups d aily caffeine consumption? 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 Past Encounters 12/29/2021 Arteriosclerotic Vascular Disease Jagdish Gonzalez MD: [address] [facility] [place] [address], Ph. History of Present Illness None recorded. Review of Systems None recorded. Physical Exam None recorded.
[2022-02-15 12:10] LABS: Hepatitis C Ab w Rflx HCV PCR Negative (Negative)
== END 2022-02-11 21:28 | disposition home or self-care (01) ==
LOC: NCHCN 21:27
PROVIDERS: PCP Physician Assistant; Visit Provider Internal Medicine
DX: I10 Essential (primary) hypertension (principal); Z11.59 Encounter for screening for other viral diseases
CPT/HCPCS: 86803

== ENCOUNTER 2024-11-19 13:19 | Outpatient (REF) | payer MEDICARE, SELFPAY ==
[2024-11-19 19:22] LABS: Calculated LDL 46 mg/dL (<100); Cholesterol 104 mg/dL (<200); HDL Cholesterol 48 mg/dL (40-60); Triglyceride 53 mg/dL (<150)
== END 2024-11-19 13:20 | disposition home or self-care (01) ==
LOC: NCHCN 13:19
PROVIDERS: PCP Physician Assistant; Visit Provider Internal Medicine
DX: E78.5 Hyperlipidemia, unspecified (principal)
CPT/HCPCS: 80061